=== PATIENT | male | born 1980 | race Hispanic/Latino ===

== ENCOUNTER 2019-11-18 05:22 | Emergency (ER) | payer SELFPAY ==
[2019-11-18] MEDS ORDERED: ASPIRIN 325 MG TAB PO ONE (05:40)
--- NOTE | 2019-11-18 06:04 | XRay Report ---
CHEST 1 VIEW INDICATION / CLINICAL INFORMATION: Chest Pain. COMPARISON: None available. FINDINGS: SUPPORT DEVICES: None. HEART / MEDIASTINUM: No significant abnormality. LUNGS / PLEURA: No significant pulmonary or pleural abnormality.. No pneumothorax. ADDITIONAL FINDINGS: No significant additional findings. IMPRESSION: 1. No acute findings. Signer Name: Adriel Ortega MD Signed: 11/18/2019 5:59 AM Workstation Name: [id number]
[2019-11-18 06:10] LABS: Basophils # (Auto) 0.1 K/mm3 (0.0-0.1); Basophils % (Auto) 1.3 % (0.0-1.8); Eosinophils # (Auto) 0.1 K/mm3 (0.0-0.4); Eosinophils % (Auto) 3.3 % (0.0-4.3); Lymphocytes # (Auto) 1.3 K/mm3 (1.2-5.4); Lymphocytes % (Auto) 31.8 % (13.4-35.0); Mean Corpuscular HGB Conc 35 % (32-34); Mean Corpuscular Volume 94 fl (84-94); Monocytes # (Auto) 0.4 K/mm3 (0.0-0.8); Monocytes % (Auto) 8.9 % (0.0-7.3); Platelet Count 209 K/mm3 (140-440); Red Blood Count 5.17 M/mm3 (3.65-5.03); Red Cell Distribution Width 14.3 % (13.2-15.2)
[2019-11-18 06:18] LABS: Hematocrit 48.6 % (35.5-45.6); Hemoglobin 17.2 gm/dl (11.8-15.2)
[2019-11-18 06:31] LABS: BUN/Creatinine Ratio 7; Blood Urea Nitrogen 5 mg/dL (9-20); Calcium 8.9 mg/dL (8.4-10.2); Hemolysis Index 17
--- NOTE | 2019-11-18 07:06 | Emergency Department Report ---
ED Chest Pain HPI - General Chief Complaint: Chest Pain Stated Complaint: CP Time Seen by Provider: 11/18/19 06:46 Source: EMS Mode of arrival: Ambulatory Limitations: No Limitations - History of Present Illness Initial Comments: 39-year-old male presents to the emergency department via EMS from work with complaint of some midsternal chest burning that started around 4:30 AM. The patient did not take anything for his symptoms prior to arrival, nor did he receive anything in route with EMS, and he says that the symptoms have now resolved upon presentation. He denies any back pain, shortness of breath, fever, lower extremity swelling, nausea, vomiting or diaphoresis. He denies any past medical history. He is a tobacco smoker but denies any illicit drug use. Severity scale (0 -10): 2 - Related Data Allergies Allergy/AdvReac Type Severity Reaction Status Date / Time No Known Allergies Allergy Verified 11/18/19 06:47 Heart Score - HEART Score History: Slightly suspicious EKG: Normal Age: < 45 Risk factors: 1-2 risk factors Troponin: < normal limit HEART Score: 1 - Critical Actions Critical Actions: 0-3 pts:0.9-1.7%risk of adverse cardiac event.Candidate for discharge ED Review of Systems ROS: Stated complaint: CP Other details as noted in HPI Comment: All other systems reviewed and negative Constitutional: denies: chills, fever Eyes: denies: eye pain, vision change ENT: denies: ear pain, throat pain Respiratory: denies: cough, shortness of breath Cardiovascular: chest pain. denies: palpitations Gastrointestinal: denies: abdominal pain, vomiting Genitourinary: denies: dysuria, discharge Musculoskeletal: denies: back pain, arthralgia Skin: denies: rash, lesions Neurological: denies: headache, weakness ED Past Medical Hx - Past Medical History Previous Medical History?: Yes - Surgical History Past Surgical History?: Yes - Social History Smoking Status: Heavy Tobacco Smoker Substance Use Type: Alcohol ED Physical Exam - General Limitations: No Limitations - Other Other exam information: GENERAL: The patient is well-developed well-nourished. HENT: Normocephalic. Atraumatic. Patient has moist mucous membranes. EYES: Extraocular motions are intact. NECK: Supple. Trachea is midline. CHEST/LUNGS: Clear to auscultation. There is no respiratory distress noted. HEART/CARDIOVASCULAR: Regular. There is no tachycardia. There is no murmur. ABDOMEN: Abdomen is soft, nontender. Patient has normal bowel sounds. SKIN: Skin is warm and dry. NEURO: The patient is awake, alert, and oriented. The patient is cooperative. The patient has no focal neurologic deficits. Normal speech. MUSCULOSKELETAL: There is no tenderness or deformity. There is no evidence of acute injury. ED Course Vital Signs 11/18/19 11/18/19 11/18/19 05:25 07:30 08:26 Temperature 98.1 F Pulse Rate 76 71 64 Respiratory 14 10 L Rate Blood Pressure 134/79 Blood Pressure 125/78 122/73 [Right] O2 Sat by Pulse 97 99 Oximetry 11/18/19 09:58 Temperature Pulse Rate 77 Respiratory Rate Blood Pressure Blood Pressure 123/88 [Right] O2 Sat by Pulse Oximetry MERCEDEZ score - Mercedez Score Age > 65: (0) No Aspirin use within the Past 7 Days: (0) No 3 or more CAD Risk Factors: (0) No 2 or more Angina events in past 24 hrs: (1) Yes Known CAD with more than 50% Stenosis: (0) No Elevated Cardiac Markers: (0) No ST Deviation Greater than 0.5mm: (0) No MERCEDEZ Score: 1 ED Medical Decision Making - Lab Data Result diagrams: 11/18/19 06:01 11/18/19 06:01 - EKG Data -: EKG Interpreted by Me EKG shows normal: sinus rhythm, axis (left axis deviation), intervals, QRS com plexes (isolated q wave to lead III), ST-T waves Rate: normal - EKG Data When compared to previous EKG there are: previous EKG unavailable Interpretation: other (Sinus rhythm, rate of 71 bpm, left axis deviation, isolated Q wave to lead III. No ST elevation FL) - Radiology Data Radiology results: image reviewed interpreted by me: Chest x-ray does not show any acute process. There are no pleural effusions, obvious pneumonia and there is no pneumothorax. - Medical Decision Making This patient presents to the emergency department with complaint of some midsternal chest burning that started at work at about 4:30 AM this morning. The pain had resolved at the time of my initial evaluation. An EKG was done that does not show any signs of ST elevation FL or dysrhythmia. Chest x-ray did not show any pleural effusions, pneumonia, focal consolidation, pneumothorax, or any other acute process. The patient's labs have been unremarkable including CBC, metabolic panel, and negative troponins x2. The patient is low on the heart score criteria and low MERCEDEZ score. The only cardiac risk factor for this patient is his tobacco use. He had 1 further transient episode of this chest burning sensation but it has also resolved prior to discharge. The patient is low on the Wells score criteria and negative on the pulmonary embolism rule out criteria. Vital signs stable throughout his ED course. For all these reasons the patient appears safe for discharge home at this time. We discussed smoking cessation. His contact information has been sent over to [facility] and someone from their office should be contacting him shortly for close outpatient follow-up as per our protocol. The patient has been instructed to return to the closest emergency department with any return of his chest pain, worsening of his symptoms, or with any acute distress. He understands and agrees to the plan. - Differential Diagnosis GERD, FL, pneumonia, costochondritis Critical Care Time: No Critical care attestation.: If time is entered above; I have spent that time in minutes in the direct care of this critically ill patient, excluding procedure time. ED Disposition Clinical Impression: Chest pain Qualifiers: Chest pain type: unspecified Qualified Code(s): R07.9 - Chest pain, unspecified Disposition: DC-01 TO HOME OR SELFCARE Is pt being admited?: No Condition: Stable Instructions: Chest Pain (ED) Additional Instructions: Please follow-up with a primary care physician in the next few days. I am sending your contact information over to [facility] cardiology and someone from their office should be contacting you shortly for close outpatient follow- up. Please go to the closest emergency department with any return of your chest pain, or with any acute distress. Please try and quit smoking. Referrals: [facility] [Provider Group] - 2-3 Days Time of Disposition: 09:54
[2019-11-18 09:59] VITALS: BP 123/88
== END 2019-11-18 10:07 | disposition home or self-care (01) ==
LOC: ED 05:22
DX: R07.89 Other chest pain (principal); F17.200 Nicotine dependence, unspecified, uncomplicated; Z98.890 Other specified postprocedural states
CPT/HCPCS: 36415; 71045; 80048; 84484; 85025; 93005; 93010